=== PATIENT | male | born 1955 | race African-American/Black ===

== ENCOUNTER 2021-12-20 23:38 | Emergency (ER) | payer OTHER, MEDICAID ==
--- NOTE | 2021-12-21 00:40 | NUR ---
CALLED TO TRIAGE X 3 [phone], [id number], [id number]. [facility]BS
== END 2021-12-21 00:35 | disposition left against medical advice (07) ==
LOC: MED 23:38
DX: K13.79 Other lesions of oral mucosa (principal); Z53.21 Procedure and treatment not carried out due to patient leaving prior to being seen by health care provider